=== PATIENT | male | born 1940 | race Caucasian/White ===

== ENCOUNTER → 2017-01-05 | Outpatient (CLI) | payer MEDICARE, BC ==
[~2017-01-05] MED LIST: ASCRIPTIN; ASPIRIN81 M1 PO; ASPIRIN81 M2 PO; COREG PO; FINASTERIDE5 M1 PO; LASIX20 MG PO; MULTI-VITAMIN1 TAB PO; PANTOPRAZOLE SO40 MG PO; PLAVIX PO; REGLAN10 MG PO; ULTRAM; ZOCOR; ZOCOR10 MG PO; ZONEGRAN100 MG PO
[2017-01-05 14:54] LABS: CREATININE SERUM 1.6 mg/dL (0.6-1.4); GLOM FILT RATE Estimated 45.1 mL/min (>60)
== END | disposition home or self-care (01) ==
LOC: CCAT 13:47
PROVIDERS: Urology
DX: N28.9 Disorder of kidney and ureter, unspecified (principal)
CPT/HCPCS: 36415; 82565; 84520

== ENCOUNTER → 2017-01-06 | Outpatient (CLI) | payer MEDICARE, BC ==
--- NOTE | ~2017-01-06 | CT3 ---
[facility] A Service of [facility] & [facility] RADIOLOGY TEXT RESULTS PATIENT: MICHAEL ROE [facility] 44 UNIT #: [id number] AGE: [address]: Tee Hampton MD SEX: M ORDER DR: [id number] [facility] [address] [place], [place] [address] [id number] O MR#: [id number] Acc #: [id number] NAME: MICHAEL ROE : 1940 SEX: M STUDY DATE/TIME: 01/06/2017 10:40 UNIT: [facility] ROOM: STUDY DESCRIPTION: CT Abd and Pelv WWo Cont Attending Physician: Tee Hampton M.D. Referring Physician: Tee Hampton M.D. Ordering Physician: Tee Hampton M.D. Primary Care Physician: Cb Benítez M.D. MEDICAL IMAGING REPORT This report is preliminary unless electronic signature is present EXAM CT abdomen, without contrast, CT abdomen and pelvis with contrast, 01/06/2017. HISTORY Indeterminate right and left renal masses on previous unenhanced CT. PROCEDURE Noncontrasted CT of the abdomen. Post contrast CT of the abdomen and pelvis, with multiphase acquisition through the kidneys. COMPARISON STUDIES Unenhanced CT from 11/12/2016. FINDINGS The included lung bases are clear. Cardiomegaly. There is calcification, left ventricular apex, suggesting previous MO. This is stable. No radiodense gallstones. No radiodense renal calculi. ABDOMEN WITH CONTRAST: 2.5-cm lesion exophytic from the right mid kidney shows mild enhancement. It has a precontrast HU value of 20.5 and postcontrast HU value of 53.5. There is a 1.8-cm lesion at the lower pole of the left kidney. This has precontrast HU value of 25.5, postcontrast HU value of 31.2. This finding is most in keeping with a benign proteinaceous or hemorrhage cyst. There are other cysts in the left kidney, largest measuring up to 2.3 cm. The kidneys enhance symmetrically. The liver, spleen, adrenal glands, pancreas, and gallbladder are unremarkable. The bowel loops are nondilated. There are a few STS. [facility] A Service of [facility] & [facility] RADIOLOGY TEXT RESULTS PATIENT: MICHAEL ROE LOCATION: [facility] : 44 UNIT #: [id number] AGE: [address]: Tee Hampton MD SEX: M ORDER DR: uncomplicated diverticula in the sigmoid colon. Moderate colonic stool burden. Appendix is normal. There is no abdominal adenopathy. No pelvic mass or adenopathy. Prostate gland measures 5.4 cm. No aggressive-appearing bone lesion. IMPRESSION 1. 2.5-cm enhancing lesion exophytic from the posterior right mid kidney, most in keeping with a renal cell carcinoma. There is no evidence for metastatic disease in the abdomen or pelvis. No evidence for renal vein involvement. 2. Benign cysts in the left kidney, including a 1.8-cm proteinaceous or hemorrhagic cyst at the lower pole of the left kidney. 3. Previous left ventricular apex myocardial infarction with some calcification and a small amount of focal thrombus. 4. Prostatomegaly. Dictated by... Sidney Singh M.D. THIS IS AN ELECTRONICALLY VERIFIED REPORT Sidney Singh M.D. at 01/07/2017 7:08 AM Yana TD: 01/06/2017 12:34 JOB #: [id number] MEDICAL IMAGING REPORT COPY
== END | disposition home or self-care (01) ==
LOC: CCAT 08:16
DX: N28.9 Disorder of kidney and ureter, unspecified (principal); N28.1 Cyst of kidney, acquired; N40.0 Benign prostatic hyperplasia without lower urinary tract symptoms
CPT/HCPCS: 74178; 96360; 96361; Q9967